=== PATIENT | male | born 1995 | race Caucasian/White ===

== ENCOUNTER 2018-11-03 16:09 | Emergency (ER) | payer BC ==
[2018-11-03 16:21] VITALS: BP 116/86
[2018-11-03] MEDS ORDERED: Meclizine TAB* 12.5 MG PO ONE (16:44)
--- NOTE | 2018-11-03 16:44 | ED ---
Dizziness - HPI Summary HPI Summary: 22 year old M presents to [facility] with a chief complaint of dizziness since last night, 11/02/18. Symptoms aggravated when moving from sitting down or standing up to lying down and vice versa. Symptoms alleviated by nothing. Patient reports dizziness late last night when he moves from sitting or standing to lying down and vice versa but reports that he is fine when he stays in those positions for long periods of time. Patient reports that his head would spin and his vision would move back and forth. Patient reports nausea and tingling in the arm described like blood leaving his arm but denies vomiting and pain or ringing in his ears. Patient visited Urgent Care where a vertigo test was done and revealed to be negative. Patient reports when he lays back further his eyes swing to the left but this morning they were swinging to the right. Patient reports slightly similar symptoms previously but never consistently like this. Patient reports temperature fluctuations where he would get really hot and then really cold. Patient denies any recent colds though he moved to a new apartment in the basement. Mhx anxiety disorder though he does not think current symptoms are from his anxiety. SHx wisdom teeth removal. Patient denies allergies to medicines, tobacco use, drug use (but takes lexopro 10 mg). Patient reports occasional alcohol. - History Of Current Complaint Chief Complaint: EDDizziness Stated Complaint: DIZZINESS AND SHAKING PER PT Time Seen by Provider: 11/03/18 16:28 Hx Obtained From: Patient Onset/Duration: Still Present Character: Head Spinning Aggravating Factor(s): Other - movement from laying down to standing or sitting and vice versa Alleviating Factor(s): Other - staying in [facility] Associated Signs And Symptoms: Positive: Nausea, Other: - temperature fluctuations, tingling in arm. Negative: Vomiting, Tinnitus - Allergies/Home Medications Allergies/Adverse Reactions: Allergies Allergy/AdvReac Type Severity Reaction Status Date / Time No Known Allergies Allergy Verified 11/03/18 16:22 Home Medications: Home Medications Escitalopram Oxalate [Lexapro 10 mg] 10 mg PO DAILY 11/03/18 [History Confirmed 11/03/18] PMH/Surg Hx/FS Hx/Imm Hx Sensory History: Reports: Hx Contacts or Glasses Opthamlomology History: Reports: Hx Contacts or Glasses Psychiatric History: Reports: Hx Anxiety - Surgical History Surgery Procedure, Year, and Place: wisdom teeth removal Infectious Disease History: No Infectious Disease History: Denies: Traveled Outside the [place] in Last 30 Days - Family History Known Family History: Positive: Unknown - Social History Alcohol Use: Occasionally Hx Substance Use: No Substance Use Type: Reports: None Hx Tobacco Use: No Smoking Status (MU): Never Smoked Tobacco Review of Systems Constitutional: Other - temperature fluctuations ENT: Other - moving vision; denies tinnitus Positive: Nausea. Negative: Vomiting Musculoskeletal: Other - tingling in arms Neurological: Other - dizziness All Other Systems Reviewed And Are Negative: Yes Physical Exam - Summary Physical Exam Summary: Constitutional: Well-developed, Well-nourished, Alert. (-) Distressed Skin: Warm, Dry HENT: Normocephalic; Atraumatic Eyes: Conjunctiva normal Neck: Musculoskeletal ROM normal neck. (-) JVD, (-) Stridor, (-) Tracheal deviation Cardio: Rhythm regular, rate normal, Heart sounds normal; Intact distal pulses; The pedal pulses are 2+ and symmetric. Radial pulses are 2+ and symmetric. (-) Murmur Pulmonary/Chest wall: Effort normal. (-) Respiratory distress, (-) Wheezes, (-) Rales Abd: Soft. (-) Tenderness, (-) Distension, (-) Guarding, (-) Rebound Musculoskeletal: (-) Edema Lymph: (-) Cervical adenopathy Neuro: Alert, Oriented x3, Strength normal, Cranial nerves II-XII are grossly intact. (-) Dysmetria, Nystagmus with left gaze, (-) Ataxia by finger to nose testing, (-) Sensory deficit. Able to ambulate with a normal gait. NIH stroke scale:0 Psych: Mood and affect Normal Triage Information Reviewed: Yes Vital Signs On Initial Exam: Initial Vitals Temp Pulse Resp BP Pulse Ox 97.9 F 77 18 116/86 99 11/03/18 16:12 11/03/18 16:12 11/03/18 16:12 11/03/18 16:12 11/03/18 16:12 Vital Signs Reviewed: Yes Diagnostics - Vital Signs Vital Signs Temp Pulse Resp BP Pulse Ox 11/03/18 16:12 97.9 F 77 18 116/86 99 - Laboratory Result Diagrams: 11/03/18 16:50 11/03/18 16:50 Lab Statement: Any lab studies that have been ordered have been reviewed, and results considered in the medical decision making process. Dizzy Course/Dx - Course Course Of Treatment: Patient is here with symptoms consistent with peripheral vertigo. Patient has no red flag symptoms of vertigo. Patient is a normal neurologic exam and is able to ambulate without difficulty. Patient had an NIH stroke scale of 0. Patient initially was asymptomatic and wanted blood test checked as he is very anxious about his electroltytes. Patient had normal blood tests here. Patient was discharged on meclizine. - Diagnoses Provider Diagnoses: Peripheral vertigo Discharge ED - Sign-Out/Discharge Documenting (check all that apply): Patient Departure - discharge Patient Received Moderate/Deep Sedation with Procedure: No - Discharge Plan Condition: Stable Disposition: HOME Prescriptions: Meclizine TAB* [Antivert 12.5 TAB*] 25 mg PO TID PRN #20 tab PRN Reason: Dizziness Patient Education Materials: Vertigo (ED) Referrals: [facility] [Outside] - As Soon As Possible Additional Instructions: Take medications as prescribed. Come back to ED for any difficulty speaking, walking, change in vision, or any other concerning symptoms. - Billing Disposition and Condition Condition: STABLE Disposition: Home - Attestation Statements Document Initiated by Scribe: Yes Documenting Scribe: Robina Barreto Provider For Whom George is Documenting (Include Credential): Dr. Navneet Herrera MD Scribe Attestation: Robina Gonzalez scribed for Dr. Navneet Herrera MD on 11/03/18 at 1949. Scribe Documentation Reviewed: Yes Provider Attestation: The documentation as recorded by the Robina davis accurately reflects the service I personally performed and the decisions made by me, Dr. Navneet Herrera MD Status of Scribe Document: Viewed
[2018-11-03 16:56] LABS: ABS Eosinophils 0.1 10^3/ul (0-0.6); ABS Lymphocytes 0.8 10^3/ul (1.0-4.8); ABS Monocytes 0.4 10^3/ul (0-0.8); ABS Neutrophils 3.8 10^3/ul (1.5-7.7); Eosinophil % 2.4 %; Hematocrit 45 % (42-52); Hemoglobin 15.3 g/dL (14.0-18.0); Lymphocyte % 15.2 %; Mean Corpuscular HGB Conc 34 g/dL (31-36); Mean Corpuscular Hemoglobin 30 pg (27-31); Mean Corpuscular Volume 88 fL (80-94); Mean Platelet Volume 8.6 fL (7.4-10.4); Nucleated Red Blood Cells % 0.1; Platelet Count 178 10^3/uL (150-450); Red Blood Count 5.07 10^6 /uL (4.18-5.48); Red Cell Distribution Width 13 % (10-15); White Blood Count 5.1 10^3/uL (3.5-10.8)
[2018-11-03 17:13] LABS: Albumin 4.7 g/dL (3.2-5.2); BUN/Creatinine Ratio 10.6 (8-20); Calcium 9.6 mg/dL (8.6-10.3); EGFR African American 135.2 (>60); EGFR Non-African American 111.7 (>60); Globulin 2.4 g/dL (2-4); Potassium 3.8 mmol/L (3.5-5.0); Total Bilirubin 1.1 mg/dL (0.2-1.0); Total Protein 7.1 g/dL (6.4-8.9)
== END 2018-11-03 17:44 | disposition home or self-care (01) ==
LOC: ED 16:09
DX: H81.399 Other peripheral vertigo, unspecified ear (principal); F41.9 Anxiety disorder, unspecified; Z79.899 Other long term (current) drug therapy
CPT/HCPCS: 36415; 80053; 85025; 99282; A9270-GY